=== PATIENT | female | born 1960 | race Caucasian/White ===

== ENCOUNTER 2023-04-20 20:29 | Inpatient (IN) ==
[2023-04-20] MEDS ORDERED: PIPERACILLIN/TAZOBACTAM 4.5 GM/120 ML BAG IV ONE (20:49)
--- NOTE | 2023-04-20 21:21 | Emergency Department Note ---
Impression & Plan Infected blister of sacrum, Cellulitis of left leg without foot, History of diabetes mellitus ED Provider Note Provider: Palomo Wang MD DATE OF SERVICE: 04/20/2023 CHIEF COMPLAINT: Infection HISTORY OF PRESENT ILLNESS: Patient is a 62-year-old female just history of CVA with central and left-sided deficits as well as a history of hypertension and diabetes not insulin presenting with today with concern for worsening infection. Patient has noted on and off for years having occasional cyst of the back particular the low back. Developed over the last several weeks but has recently become red and irritated. Seen at the PCPs office started on Bactrim. Taking Bactrim since Sunday but no change in erythema or drainage from the bottom. Today noted redness and swelling not totally circumferential but of significant mount of the left lower leg. Did recently have her legs shaved. Denies any trauma. Has swelling intermittently dependent more according to the . It swollen now but states this would go down in the morning is not that different than normal. Does wear a foot drop brace. No significant swelling or tenderness of the left leg. Denies any significant pain. No fevers or general fatigue noted. Blood sugars been fairly well controlled. Had concer ns given the new redness of the leg for cellulitis and lack of improvement thus came here for evaluation. PAST MEDICAL HISTORY: As noted above MEDICATIONS: Reviewed home medications includes Bactrim SOCIAL HISTORY: , non-smoker PHYSICAL EXAM: GENERAL: alert and oriented in no acute distress on stretcher, at bedside Head: normocephalic and atraumatic EYES: No injection, discharge or icterus. NECK: Trachea midline. ENT: Mucous membranes pink and moist. LUNGS: Airway patent. No retractions. HEART: Regular rate and rhythm. ABDOMEN: Soft and non-tender, without guarding or rebound. BACK: No midline tenderness, there is a small approximately 2 cm sacral erythematous area with some trace discharge that was cultured SKIN: Acyanotic, warm, dry, without rashes except as noted elsewhere here EXTREMITIES: Without swelling, tenderness or deformity except for the left lower leg which has 2+ edema. There is redness between the left ankle and left knee anterior lateral medial but not fully circumferential. No large draining wound noted. NEUROLOGICAL: Some contracture and limited mobility in the left arm and leg secondary to prior CVA. No aphasia or slurred speech. Intact gross sensation on the bilateral lower legs EK beats. Normal sinus rhythm. No PVC or PAC. No acute ST segment elevation or depression with QTc of 429. Patient's laboratory studies and imaging reviewed. Differential includes Cellulitis, abscess, MRSA infection, DVT, necrotizing fasciitis, dermatitis, drug eruption, allergic reaction, as well as other pathologies. IMPRESSION/MEDICAL DECISION MAKING: Wound culture from a small amount of trace sacral drainage and purulence was sen t. Seems fairly localized. Do not believe deeper extension at this point. Blood cultures lactate and blood work sent. Will expand with [employer] and bank given failure of Bactrim in the outpatient and new expression of redness and edema to the left leg. Seems unilateral and not present on the right leg. Will exclude DVT with ultrasound. Seems atypical for heart failure given the asymmetric nature at this time. Not having any significant pain or neurological new deficit given her underlying history of stroke weakness. No lactate elevation and doubt sepsis. Afebrile here not hypotensive. No significant leukocytosis. No anemia. No severe electrolyte abnormalities. No transaminitis. Negative COVID. Pro-Christopher not significantly elevated. Ultrasound report of the left lower leg reviewed. Given the development of the left lower leg as well as persistence of the sacral area while on antibiotics, again covered broadly and will bring in for further observation for improvement. Blood cultures and wound cultures are pending. Patient and in agreement this plan. DIAGNOSIS: Sacral cellulitis/infection, left leg cellulitis DISPOSITION: Hospitalist will evaluate Patient was agreeable with this plan. Past Med/Surg History Social History Smoking Status: Never smoker Preferred Language: Bangladeshi Feels Safe at Home: Yes Allergies Allergies Allergy/AdvReac Type Severity Reaction Status Date / Time aspirin Allergy Unknown Verified 11/05/09 02:34 Home Meds Home Medications Medication Instructions Recorded Confirmed Lisinopril (Prinivil) 20 mg PO DAILY #0 tabs 09/14/13 ASPIRIN (ASPIRIN EC) 81 mg PO DAILY ##0 10/16/13 Acetaminophen (Tylenol) 650 mg PO Q4 PRN MILD PAIN #0 tabs 10/16/13 Amlodipine (Norvasc) 20 mg PO DAILY #0 tabs 10/16/13 BISACODYL 10 mg VT NO BM X 2 DAYS ##0 10/16/13 DOCUSATE SODIUM (COLACE) 100 mg PO BID #0 caps 10/16/13 FAMOTIDINE (PEPCID) 20 mg PO BID #0 tabs 10/16/13 LACTULOSE (ENCEPHALOPATHY) 30 ml PO DAILY PRN NO BM X 1 DAY 10/16/13 (LACTULOSE) ##0 MAGNESIUM HYDROXIDE (MILK OF 30 ml PO NO BM X 1 DAY #0 mL 10/16/13 MAGNESIA) Metoprolol Tartrate (Lopressor) 12.5 mg PO BID #0 tabs 10/16/13 (Lopressor) Pravastatin (Pravachol ) 40 mg PO DAILY @ 1900 #0 tabs 10/16/13 Senna/Docusate Sod (Senokot S) 1 tab PO BID PRN #0 tabs 10/16/13 Sodium Phosphate/Biphosphate 1 dose VT DAILY PRN NO BM X 3 DAYS 10/16/13 (Fleet Enema) #0 BTLS Results & Data (ED) Vital Signs Vital Signs - 24 hr 04/20/23 20:31 04/20/23 20:30 04/20/23 20:54 Temperature 36.6 C Temperature Source Temporal Artery Scan Pulse Rate 82 80 Pulse Rate [Apical] 76 Pulse Rhythm Regular Pulse Rhythm [Apical] Pulse Strength Normal Pulse Strength [Apical] Respiratory Rate 18 19 Respiratory Effort / Characteristics Non-Labored Spontaneous Non-Labored Respiratory Depth Normal Normal Respiratory Pattern Regular Blood Pressure 141/88 H Blood Pressure [Right Arm] 125/80 Blood Pressure Mean 105 Blood Pressure Mean [Right Arm] 95 Blood Pressure Position Sitting Pulse Oximetry 94 98 Oxygen Delivery Method Room Air Room Air Sepsis Recent Fever Within 48 Hours No Sepsis New/Unexplained Change in Mental Status N/A Sepsis Action Taken by Nursing No Action Required 04/20/23 22:27 Temperature Temperature Source Pulse Rate Pulse Rate [Apical] 75 Pulse Rhythm Pulse Rhythm [Apical] Regular Pulse Strength Pulse Strength [Apical] Normal Respiratory Rate 18 Respiratory Effort / Characteristics Non-Labored Respiratory Depth Normal Respiratory Pattern Blood Pressure Blood Pressure [Right Arm] 124/83 Blood Pressure Mean Blood Pressure Mean [Right Arm] 96 Blood Pressure Position Pulse Oximetry 96 Oxygen Delivery Method Sepsis Recent Fever Within 48 Hours Sepsis New/Unexplained Change in Mental Status Sepsis Action Taken by Nursing Laboratory Data 04/20/23 21:09 04/20/23 21:09 Lab Results 04/20/23 04/20/23 04/20/23 Range/Units 21:09 21:09 21:09 WBC 5.84 (4.8-10.8) K/ul RBC 5.01 (4.20-5.40) M/uL Hgb 14.6 (12.0-16.0) g/dl Hct 41.3 (37.0-47.0) % MCV 82.4 (80.0-100.0) fL MCH 29.1 (25.0-34.0) pg MCHC 35.4 (32.0-36.0) g/dL RDW Std Deviation 39.8 (36.4-46.3) fL RDW Coeff of Janeth 13.5 (11.5-14.5) % Plt Count 251 (130-400) K/uL MPV 9.6 (9.4-12.4) fL Immature Gran % (Auto) 0.3 % Neut % (Auto) 61.5 % Lymph % (Auto) 17.8 % [place] % (Auto) 15.6 % Eos % (Auto) 4.1 % Baso % (Auto) 0.7 % Neut # (Auto) 3.59 (1.40-6.50) K/uL Lymph # (Auto) 1.04 L (1.2-3.4) K/uL [place] # (Auto) 0.91 H (0.11-0.59) K/uL Eos # (Auto) 0.24 (0-0.50) K/uL Baso # (Auto) 0.04 (0-0.2) K/uL Immature Gran # (Auto) 0.02 (0.01-0.20) K/uL PT 11.0 (9.0-12.0) Seconds INR 1.0 (0.9-1.1) Sodium 136 (136-145) mmol/L Potassium 4.0 (3.5-5.1) mmol/L Chloride 104 (98-107) mmol/L Carbon Dioxide 23 (21-32) mmol/L Anion Gap 9 (3-11) BUN 21 (6-23) mg/dl Creatinine 1.21 H (0.6-1.2) mg/dl Est Cr Clr Drug Dosing 54.9 ml/min Est GFR ( Amer) 55.5 ml/min Est GFR (Non-Af Amer) 47.9 ml/min BUN/Creatinine Ratio 17.4 (10-20) Glucose 132 H (70-99(Fasting)) mg/dl Lactate (0.4-2.0) mmol/L Calcium 9.1 (8.6-10.3) mg/dl Total Bilirubin 0.3 (0.2-1.0) mg/dl AST 34 (13-39) U/L ALT 45 (7-52) U/L Alkaline Phosphatase 76 (34-104) U/L Troponin I High Sens 3.3 (0-14) pg/ml Total Protein 6.9 (6.0-8.3) gm/dl Albumin 4.1 (3.4-5.0) gm/dl Globulin 2.8 (2.5-4.0) gm/dl Albumin/Globulin Ratio 1.5 (0.9-2) Procalcitonin (0-0.5) ng/ml SARS-CoV-2, RNA, NAAT (NEGATIVE) 04/20/23 04/20/23 04/20/23 Range/Units 21:09 21:09 21:09 WBC (4.8-10.8) K/ul RBC (4.20-5.40) M/uL Hgb (12.0-16.0) g/dl Hct (37.0-47.0) % MCV (80.0-100.0) fL MCH (25.0-34.0) pg MCHC (32.0-36.0) g/dL RDW Std Deviation (36.4-46.3) fL RDW Coeff of Janeth (11.5-14.5) % Plt Count (130-400) K/uL MPV (9.4-12.4) fL Immature Gran % (Auto) % Neut % (Auto) % Lymph % (Auto) % [place] % (Auto) % Eos % (Auto) % Baso % (Auto) % Neut # (Auto) (1.40-6.50) K/uL Lymph # (Auto) (1.2-3.4) K/uL [place] # (Auto) (0.11-0.59) K/uL Eos # (Auto) (0-0.50) K/uL Baso # (Auto) (0-0.2) K/uL Immature Gran # (Auto) (0.01-0.20) K/uL PT (9.0-12.0) Seconds INR (0.9-1.1) Sodium (136-145) mmol/L Potassium (3.5-5.1) mmol/L Chloride (98-107) mmol/L Carbon Dioxide (21-32) mmol/L Anion Gap (3-11) BUN (6-23) mg/dl Creatinine (0.6-1.2) mg/dl Est Cr Clr Drug Dosing ml/min Est GFR ( Amer) ml/min Est GFR (Non-Af Amer) ml/min BUN/Creatinine Ratio (10-20) Glucose (70-99(Fasting)) mg/dl Lactate 2.0 (0.4-2.0) mmol/L Calcium (8.6-10.3) mg/dl Total Bilirubin (0.2-1.0) mg/dl AST (13-39) U/L ALT (7-52) U/L Alkaline Phosphatase (34-104) U/L Troponin I High Sens (0-14) pg/ml Total Protein (6.0-8.3) gm/dl Albumin (3.4-5.0) gm/dl Globulin (2.5-4.0) gm/dl Albumin/Globulin Ratio (0.9-2) Procalcitonin < 0.05 (0-0.5) ng/ml SARS-CoV-2, RNA, NAAT NEGATIVE (NEGATIVE) Administered Medications Vancomycin HCl 2,000 mg/ (Sodium Chloride) 540 mls @ 200 mls/hr IV NOW ONE Stop: 04/21/23 00:15 Last Admin: 04/20/23 22:24 Dose: 200 mls/hr Documented By: BENJAMIN Discontinued Medications Piperacillin Sod/Tazobactam Sod (Zosyn) 4.5 gm in 120 mls @ 240 mls/hr IV NOW ONE Stop: 04/20/23 21:18 Last Infusion: 04/20/23 22:16 Dose: 0 mls/hr Documented By: Admin: 04/20/23 21:21 Dose: 240 mls/hr Documented By: BENJAMIN Discharge Plan Visit Data Chief Complaint: Infection Stated Complaint: CYST ON MIDDLE OF BACK, INFECTION ON LEFT LEG ED Provider: Palomo Wang Discharge Problem: Infected blister of sacrum, Cellulitis of left leg without foot, History of diabetes mellitus Patient Disposition: Being Evaluated by Hospitalist Forms Stand Alone Forms: My [facility] Prescriptions Prescriptions: No Action Lisinopril (Prinivil) 20 MG tablet 20 mg PO DAILY Qty: 0 ASPIRIN (ASPIRIN EC) 81 MG tablet 81 mg PO DAILY Qty: 0 Amlodipine (Norvasc) 10 MG tablet 20 mg PO DAILY Qty: 0 DOCUSATE SODIUM (COLACE) 100 MG capsule 100 mg PO BID Qty: 0 FAMOTIDINE (PEPCID) 20 MG tablet 20 mg PO BID Qty: 0 Acetaminophen (Tylenol) 325 MG tablet 650 mg PO Q4 PRN (Reason: MILD PAIN) Qty: 0 Patient Comments: MAX 3GM/24 HOURS BISACODYL 10 MG SUP 10 mg VT NO BM X 2 DAYS Qty: 0 LACTULOSE (ENCEPHALOPATHY) (LACTULOSE) 10 GM/15 ML SOLTAB 30 ml PO DAILY PRN (Reason: NO BM X 1 DAY) Qty: 0 MAGNESIUM HYDROXIDE (MILK OF MAGNESIA) 30 ML suspension 30 ml PO NO BM X 1 DAY Qty: 0 Metoprolol Tartrate (Lopressor) (Lopressor) 25 MG tablet 12.5 mg PO BID Qty: 0 Patient Comments: TAKE HALF OF A 25MG TABLET (12.5MG) Pravastatin (Pravachol ) 20 MG tablet 40 mg PO DAILY @ 1900 Qty: 0 Senna/Docusate Sod (Senokot S) 1 TAB tablet 1 tab PO BID PRNQty: 0 Sodium Phosphate/Biphosphate (Fleet Enema) MAXIMILIANO 1 dose VT DAILY PRN (Reason: NO BM X 3 DAYS) Qty: 0 Referrals Referrals: PCP,NO [Physician] -
[2023-04-20] MEDS ORDERED: VANCOMYCIN HCL 2,000 MG in SODIUM CHLORIDE 0.9% 500 ML IV ONE (21:34)
[2023-04-20] MEDS ORDERED: VANCOMYCIN CONSULT ACTIVE PRN (21:34)
[2023-04-20 21:46] LABS: Basophils # (auto) 0.04 K/uL (0-0.2); Basophils % (auto) 0.7 %; Eosinophils # (auto) 0.24 K/uL (0-0.50); Eosinophils % (auto) 4.1 %; Hematocrit (blood only) 41.3 % (37.0-47.0); Hemoglobin 14.6 g/dl (12.0-16.0); Immature Granulocytes # (auto) 0.02 K/uL (0.01-0.20); Immature Granulocytes % (auto) 0.3 %; Lymphocytes # (auto) 1.04 K/uL (1.2-3.4); Lymphocytes % (auto) 17.8 %; Mean Corpuscular Hemoglobin 29.1 pg (25.0-34.0); Mean Corpuscular Hgb Conc 35.4 g/dL (32.0-36.0); Mean Corpuscular Volume 82.4 fL (80.0-100.0); Mean Platelet Volume 9.6 fL (9.4-12.4); Monocytes # (auto) 0.91 K/uL (0.11-0.59); Monocytes % (auto) 15.6 %; Neutrophils # (auto) 3.59 K/uL (1.40-6.50); Neutrophils % (auto) 61.5 %; Platelet Count 251 K/uL (130-400); RDW Coefficient of Variation 13.5 % (11.5-14.5); RDW Standard Deviation 39.8 fL (36.4-46.3); Red Blood Count 5.01 M/uL (4.20-5.40); White Blood Count 5.84 K/ul (4.8-10.8)
[2023-04-20 21:50] LABS: Albumin Globulin Ratio 1.5 (0.9-2); Albumin Level 4.1 gm/dl (3.4-5.0); BUN Creatinine Ratio 17.4 (10-20); Bilirubin,Total 0.3 mg/dl (0.2-1.0); Calcium 9.1 mg/dl (8.6-10.3); Creatinine Clr Calc Pharmacy 54.9 ml/min; Est GFR (African American) 55.5 ml/min; Est GFR (Non-African American) 47.9 ml/min; Globulin 2.8 gm/dl (2.5-4.0); Total Protein 6.9 gm/dl (6.0-8.3)
[2023-04-20 21:57] LABS: Troponin I High Sensitivity 3.3 pg/ml (0-14)
--- NOTE | 2023-04-20 23:54 | Ultrasound Report ---
Exam(s): US VENOUS LEFT LOWER EXTREMITY EXAM: US Duplex Left Lower Extremity Veins CLINICAL HISTORY: Reason for exam: swelling, red. TECHNIQUE: Real-time duplex ultrasound scan of the left lower extremity veins integrating B-mode two-dimensional vascular structure, Doppler spectral analysis, color flow Doppler imaging and compression. COMPARISON: No relevant prior studies available. FINDINGS: Deep veins: Unremarkable. No DVT in the visualized common femoral, femoral, proximal deep femoral or popliteal veins. The veins demonstrate normal color flow, are normally compressible, with normal phasic flow and/or augmentation response. Superficial veins: Unremarkable. No thrombus in the visualized great saphenous vein. Soft tissues: No acute findings. No popliteal cyst. IMPRESSION: Negative left lower extremity venous duplex ultrasound. There is no evidence of DVT. Electronically signed by: Palomo Juan MD 04/20/23 23:53 PM
--- NOTE | 2023-04-20 23:58 | History & Physical Report ---
Date of Service April 20, 2023 Assessment & Plan (1) Infected blister of sacrum: Plan: 62-year-old female presents with small cutaneous abscess on the mid lower back above buttock region and also cellulitis of the left lower extremities. Failed outpatient treatment with Bactrim. Small cutaneous abscess in the lower back Left lower extremity cellulitis Failed outpatient treatment with Bactrim ER started IV Vanco and Zosyn which will be continued We will follow cultures We will follow the response Will monitor in the hospital History of CVA Left-sided weakness Continue statin and aspirin Diabetes Hold metformin Insulin sliding scale Monitor the blood sugars Follow HbA1c levels Hypertension Continue amlodipine and lisinopril We will monitor the blood pressure Hyperlipidemia On statin Sleep apnea CPAP nightly DVT prophylaxis Lovenox Disposition to be determined Full code (2) Cellulitis of left leg without foot: History of Present Illness Chief Complaint: Cutaneous abscess in the back and left lower extremity cellulitis Primary Care Provider: Stefany Ty, 62-year-old female with past medical history significant for type 2 diabetes, hyperlipidemia, hypertension, thrombotic stroke involving the right middle cerebral artery, history of carotid artery dissection, history of craniotomy at the time of stroke, left side hemiparesis from the stroke, history of Alex's syndrome, cranial 3 palsy partial, obesity presents with small cutaneous abscess in the lower back and left lower extremity cellulitis. Patient will insist on of since last 1 year in the lower back but seems infected recently. Saw PCP recently on April 17 for the small cutaneous abscess in the back which was painful and was draining purulent discharge and was prescribed Bactrim. The next day she developed redness in the lower extremity. She uses brace for the left lower extremity for ambulation because of weakness of stroke and the redness is in the area where the brace is placed. As it was not getting better came to the ER today. Denies any fevers. In the ER small cutaneous abscess in the lower back was drained and cultures were sent and he was started on IV Vanco and Zosyn. Currently resting comfortably and hemodynamically stable. No headache. No earache runny nose or sore throat. No cough. Appetite is okay. No difficulty swallowing. No chest pain or shortness of breath. No nausea or vomiting. No abdominal pain. Normal bowel and bladder movements. Ambulates with a brace on. helps her. in the room who helped with H&P Past medical history as mentioned above Past surgical history colonoscopy, cystoscopy, craniotomy, removal of ovaries, repair of skull plate. Social history no smoking 1 glass of wine a night no drug use . Family history mother has asthma and hypertension. Father has diabetes. Brother has diabetes. Cousin has breast cancer.. Allergies Allergy/AdvReac Type Severity Reaction Status Date / Time aspirin Allergy Unknown Verified 11/05/09 02:34 Home Medications Medication Instructions Recorded Confirmed Type amlodipine 10 mg tablet 10 mg PO DAILY 04/20/23 04/20/23 History aspirin 81 mg tablet,delayed 81 mg PO DAILY 04/20/23 04/20/23 History release atorvastatin 40 mg tablet 40 mg PO DAILY 04/20/23 04/20/23 History lisinopril 20 mg tablet 20 mg PO DAILY 04/20/23 04/20/23 History metformin 1,000 mg tablet 1,000 mg PO BID 04/20/23 04/20/23 History sulfamethoxazole 800 1 tab PO BID 04/20/23 04/20/23 History mg-trimethoprim 160 mg tablet Past Med/Surg History Social History Smoking Status: Never smoker Preferred Language: Guatemalan Feels Safe at Home: Yes Review of Systems Review of Systems: All systems reviewed & are unremarkable except as noted in Subjective Physical Exam Physical Exam: General- Not in distress Head- atraumatic Eyes- PERRL ENT- oropharynx clear Neck- supple, no JVD. Lungs- clear to auscultation and percussion Heart- regular rhythm; no murmur, no gallop, no rub appreciated Abdomen- normal bowel sounds, soft, nontender, no masses or hepatosplenomegaly Extremities- Left lower extremity erythematous and warm to touch until mid akers region from foot. Neuro- alert, oriented x 3; Left sided weakness. Skin- maculopapular lesion 2 x 2 cm on middle of lower back region above buttock region. Results & Data Results & Data Vital Signs (Past 12 Hours) Vital Signs Temp Pulse Pulse Resp BP BP Pulse Ox 04/20/23 22:27 75 18 124/83 96 04/20/23 20:54 80 04/20/23 20:30 76 19 125/80 98 04/20/23 20:31 36.6 C 82 18 141/88 H 94 O2 Del Method 04/20/23 22:27 07/21/23 20:54 04/20/23 20:30 Room Air 04/20/23 20:31 Room Air Diagnostic Findings Laboratory Results WBC 5.84 K/ul (4.8-10.8) 04/20/23 21:09 RBC 5.01 M/uL (4.20-5.40) 04/20/23 21:09 Hgb 14.6 g/dl (12.0-16.0) 04/20/23 21:09 Hct 41.3 % (37.0-47.0) 04/20/23 21: MCV 82.4 fL (80.0-100.0) 04/20/23 21: MCH 29.1 pg (25.0-34.0) 04/20/23 21: MCHC 35.4 g/dL (32.0-36.0) 04/20/23 21:09 RDW Std Deviation 39.8 fL (36.4-46.3) 04/20/23 21:09 RDW Coeff of Janeth 13.5 % (11.5-14.5) 04/20/23 21: Plt Count 251 K/uL (130-400) 04/20/23 21:09 MPV 9.6 fL (9.4-12.4) 04/20/23 21:09 Immature Gran % (Auto) 0.3 % 04/20/23 21:09 Neut % (Auto) 61.5 % 04/20/23 21:09 Lymph % (Auto) 17.8 % 04/20/23 21:09 [place] % (Auto) 15.6 % 04/20/23 21:09 Eos % (Auto) 4.1 % 04/20/23 21:09 Baso % (Auto) 0.7 % 04/20/23 21:09 Neut # (Auto) 3.59 K/uL (1.40-6.50) 04/20/23 21:09 Lymph # (Auto) 1.04 K/uL (1.2-3.4) L 04/20/23 21:09 [place] # (Auto) 0.91 K/uL (0.11-0.59) H 04/20/23 21:09 Eos # (Auto) 0.24 K/uL (0-0.50) 04/20/23 21:09 Baso # (Auto) 0.04 K/uL (0-0.2) 04/20/23 21:09 Immature Gran # (Auto) 0.02 K/uL (0.01-0.20) 04/20/23 21:09 PT 11.0 Seconds (9.0-12.0) 04/20/23 21:09 INR 1.0 (0.9-1.1) 04/20/23 21:09 Sodium 136 mmol/L (136-145) 04/20/23 21:09 Potassium 4.0 mmol/L (3.5-5.1) 04/20/23 21: Chloride 104 mmol/L (98-107) 04/20/23 21: Carbon Dioxide 23 mmol/L (21-32) 04/20/23 21: Anion Gap 9 (3-11) 04/20/23 21:09 BUN 21 mg/dl (6-23) 04/20/23 21: Creatinine 1.21 mg/dl (0.6-1.2) H 04/20/23 21:09 Est Cr Clr Drug Dosing 54.9 ml/min 04/20/23 21:09 Est GFR ( Amer) 55.5 ml/min 04/20/23 21:09 Est GFR (Non-Af Amer) 47.9 ml/min 04/20/23 21:09 BUN/Creatinine Ratio 17.4 (10-20) 04/20/23 21:09 Glucose 132 mg/dl (70-99(Fasting)) H 04/20/23 21:09 Lactate 2.0 mmol/L (0.4-2.0) 04/20/23 21:09 Calcium 9.1 mg/dl (8.6-10.3) 04/20/23 21:09 Total Bilirubin 0.3 mg/dl (0.2-1.0) 04/20/23 21:09 AST 34 U/L (13-39) 04/20/23 21:09 ALT 45 U/L (7-52) 04/20/23 21:09 Alkaline Phosphatase 76 U/L (34-104) 04/20/23 21:09 Troponin I High Sens 3.3 pg/ml (0-14) 04/20/23 21:09 Total Protein 6.9 gm/dl (6.0-8.3) 04/20/23 21:09 Albumin 4.1 gm/dl (3.4-5.0) 04/20/23 21:09 Globulin 2.8 gm/dl (2.5-4.0) 04/20/23 21:09 Albumin/Globulin Ratio 1.5 (0.9-2) 04/20/23 21:09 Procalcitonin < 0.05 ng/ml (0-0.5) 04/20/23 21:09 SARS-CoV-2, RNA, NAAT NEGATIVE (NEGATIVE) 04/20/23 21:09 Impressions Venous Doppler Study 04/20/23 20:48 Exam(s): US VENOUS LEFT LOWER EXTREMITY EXAM: US Duplex Left Lower Extremity Veins CLINICAL HISTORY: Reason for exam: swelling, red. TECHNIQUE: Real-time duplex ultrasound scan of the left lower extremity veins integrating B-mode two-dimensional vascular structure, Doppler spectral analysis, color flow Doppler imaging and compression. COMPARISON: No relevant prior studies available. FINDINGS: Deep veins: Unremarkable. No DVT in the visualized common femoral, femoral, proximal deep femoral or popliteal veins. The veins demonstrate normal color flow, are normally compressible, with normal phasic flow and/or augmentation response. Superficial veins: Unremarkable. No thrombus in the visualized great saphenous vein. Soft tissues: No acute findings. No popliteal cyst. IMPRESSION: Negative left lower extremity venous duplex ultrasound. There is no evidence of DVT. Electronically signed by: Palomo Juan MD 04/20/23 23:53 PM ECG Additional Comments: ECG normal sinus rhythm at the rate of [address] abnormalities Code Status & VTE Plan VTE Prophylaxis Plan VTE Prophylaxis will be ordered: Yes
[2023-04-21] MEDS ORDERED: CARBOHYDRATES FOR HYPOGLYCEMIA PO PRN (02:07)
[2023-04-21] MEDS ORDERED: GLUCAGON FOR INJ 1 MG VIAL SQ PRN (02:07)
[2023-04-21] MEDS ORDERED: ACETAMINOPHEN 325 MG TAB PO PRN (02:07)
[2023-04-21] MEDS ORDERED: DEXTROSE 50% 50 ML SYRINGE IV PRN (02:07)
[2023-04-21] MEDS ORDERED: SODIUM CHLORIDE 0.9% 1000ML 1,000 ML IV SCH (02:07)
[2023-04-21] MEDS ORDERED: POLYETHYLENE (MIRALAX) 17 GM PACK PO PRN (02:07)
[2023-04-21] MEDS ORDERED: GLUCOSE 10 TAB/TUBE PO PRN (02:07)
[2023-04-21] MEDS ORDERED: GLUCOSE 40% GEL 15 GM TUBE PO PRN (02:07)
[2023-04-21] MEDS: PIPERACILLIN/TAZOBACTAM 4.5 GM in DEXTROSE 5% 100 ML IV SCH ×3 (03:39→21:08)
[2023-04-21 07:24] LABS: Basophils # (auto) 0.04 K/uL (0-0.2); Basophils % (auto) 0.9 %; Eosinophils # (auto) 0.27 K/uL (0-0.50); Eosinophils % (auto) 5.8 %; Hematocrit (blood only) 38.8 % (37.0-47.0); Immature Granulocytes # (auto) 0.02 K/uL (0.01-0.20); Immature Granulocytes % (auto) 0.4 %; Lymphocytes # (auto) 0.95 K/uL (1.2-3.4); Lymphocytes % (auto) 20.4 %; Mean Corpuscular Hgb Conc 33.5 g/dL (32.0-36.0); Mean Corpuscular Volume 83.4 fL (80.0-100.0); Mean Platelet Volume 9.7 fL (9.4-12.4); Monocytes # (auto) 0.83 K/uL (0.11-0.59); Monocytes % (auto) 17.8 %; Neutrophils # (auto) 2.55 K/uL (1.40-6.50); Neutrophils % (auto) 54.7 %; Platelet Count 222 K/uL (130-400); RDW Coefficient of Variation 13.5 % (11.5-14.5); RDW Standard Deviation 41.1 fL (36.4-46.3); Red Blood Count 4.65 M/uL (4.20-5.40); White Blood Count 4.66 K/ul (4.8-10.8)
[2023-04-21 08:40] LABS: Calcium 8.5 mg/dl (8.6-10.3); Potassium 4.3 mmol/L (3.5-5.1)
[2023-04-21 08:45] LABS: BUN Creatinine Ratio 15.9 (10-20); Creatinine Clr Calc Pharmacy 58.8 ml/min; Est GFR (African American) 60.3 ml/min
--- NOTE | 2023-04-21 09:11 | Electrocardiogram Report ---
Test Reason : Blood Pressure : / mmHG Vent. Rate : 070 BPM Atrial Rate : 070 BPM P-R Int : 132 ms QRS Dur : 096 ms QT Int : 398 ms P-R-T Axes : 036 -03 033 degrees QTc Int : 429 ms Normal sinus rhythm Normal ECG When compared with ECG of 16-OCT-2013 11:13, Premature ventricular complexes are no longer Present Confirmed by Tristan Marcelo ([id number]) on 04/21/2023 9:10:55 AM Referred By: REFERRED SELF Confirmed By:Tristan Marcelo
[2023-04-21 09:13] LABS: Estimated Average Glucose 140 mg/dl; Hemoglobin A1C 6.5 % (4.5-5.6)
[2023-04-21] MEDS: INSULIN ASPART PER UNIT CHARGE SC SCH ×4 (09:14→21:08)
[2023-04-21] MEDS: ENOXAPARIN INJ 40 MG/0.4 ML SYR SQ SCH (09:15)
[2023-04-21] MEDS: lisinopril 20 MG TAB PO SCH (09:15)
[2023-04-21] MEDS: amLODIPine BESYLATE 5 MG TAB PO SCH (09:15)
[2023-04-21] MEDS: ASPIRIN 81 MG ECTAB PO SCH (09:15)
[2023-04-21] MEDS: ATORVASTATIN 40 MG TAB PO SCH (09:15)
--- NOTE | 2023-04-21 10:36 | Pharmacy Report ---
Pharmacy PK ABX Note - Date of Service April 21, 2023 - Assessment and Plan Assessment 62 year old F receiving Vancomycin and Zosyn for treatment of small cutaneous abscess in the lower back and left lower extremity cellulitis. * Day #1 of antimicrobial therapy. * Failed outpatient treatment with Bactrim. * Afebrile. No leukocytosis. Lactate and Procal negative. SCr 1.13 mg/dL this AM, baseline 0.8 mg/dL. * Outpatient wound culture from 04/17/23 is growing "few staph lugdunensis" preliminarily. Our antibiogram shows ~94% of Staph lugdunensis are susceptible to Oxacillin at this facility. Plan Vancomycin * Loading dose: 2000 mg IV x 1 * Maintenance dose: 750 mg IV every 12 hours * Regimen is predicted to achieve target AUC/ANANDA of 400-600 mg/L.hr * Random level ordered for: 04/22/23 Pharmacy will continue to follow and will adjust dose/frequency as necessary. Thank you. Pharmacy has transitioned to AUC monitoring for vancomycin. AUC/ANANDA is the preferred PK/PD target and is associated with decreased risk of nephrotoxicity compared to traditional trough targets.
[2023-04-21] MEDS: VANCOMYCIN HCL 750 MG in SODIUM CHLORIDE 0.9% 250 ML IV SCH ×2 (12:43→23:13)
--- NOTE | 2023-04-21 15:43 | Hospitalist Progress Note ---
Date of Service April 21, 2023 Assessment & Plan (1) Infected blister of sacrum: Plan: 62-year-old female presents with small cutaneous abscess on the mid lower back above buttock region and also cellulitis of the left lower extremities. Failed outpatient treatment with Bactrim. Small cutaneous abscess in the lower back We will follow cultures-pinpoint growth No drainage and/or abscess We will continue current antibiotic for now Blood cultures have been pending Left lower extremity cellulitis Failed outpatient treatment with Bactrim ER started IV Vanco and Zosyn which will be continued We will continue current antibiotic Get PT and OT evaluation Likely discharge tomorrow on oral Augmentin History of CVA Left-sided weakness Continue statin and aspirin Diabetes Hold metformin Insulin sliding scale Monitor the blood sugars Follow HbA1c levels-6.5 on 04/21/2023 Hypertension Continue amlodipine and lisinopril We will monitor the blood pressure Hyperlipidemia On statin Sleep apnea CPAP nightly DVT prophylaxis Lovenox Disposition to be determined Full code (2) Cellulitis of left leg without foot: Admission and Anticipated Discharge Date Admission Date: April 20, 2023 Subjective 04/21/2023 The patient was seen and examined in medical floor in presence of the She has been feeling much better and the redness and swelling of the left leg has improved a lot Sectoral blister is not draining anything without any surrounding inflammation Denies any other symptoms and wants to go home Review of Systems Review of Systems: All systems reviewed and are unremarkable except as noted below Physical Exam Physical Exam: Lying in bed comfortably Constitutional: well developed, well nourished and + obese; not ill appearing Eyes: PERRL, conjunctivae normal, anicteric sclerae ENMT: external ear and nose normal, oropharynx normal Neck: trachea midline, no thyromegaly Respiratory: no respiratory distress Auscultation: + diminished lung sound s; no crackles Cardiovascular: Rate/Rhythm: regular rate and regular rhythm; not tachycardic Heart Sounds: normal S1 and normal S2; no murmur Extremities: + edema (Trace edema bilaterally) Left leg has minimal edema with redness involving whole of the left lower leg with associated warmth and tenderness Gastrointestinal (Abdomen): Inspection/Auscultation: normal bowel sounds; abdomen not distended Percussion/Palpation: abdomen soft; abdomen nontender Musculoskeletal: No acute arthritis involving any of the joint Neurologic: Alert, awake and oriented x3. Generally weak but no focal neurodeficit Lymphatic: no cervical or axillary lymphadenopathy Results & Data Results & Data Vital Signs (Past 12 Hours) Vital Signs Temp Pulse Resp BP Pulse Ox O2 Del Method 04/21/23 07:20 Room Air 04/21/23 07:09 37.0 C 63 17 109/73 94 Room Air Laboratory Results Short CBC 04/20/23 04/21/23 Range/Units 21:09 06:33 WBC 5.84 4.66 L (4.8-10.8) K/ul Hgb 14.6 13.0 (12.0-16.0) g/dl Hct 41.3 38.8 (37.0-47.0) % Plt Count 251 222 (130-400) K/uL BMP 04/20/23 04/21/23 21:09 06:33 Sodium 136 139 Potassium 4.0 4.3 Chloride 104 109 H Carbon Dioxide 23 23 BUN 21 18 Creatinine 1.21 H 1.13 Glucose 132 H 133 H Calcium 9.1 8.5 L Liver Function 04/20/23 Range/Units 21:09 Total Bilirubin 0.3 (0.2-1.0) mg/dl AST 34 (13-39) U/L ALT 45 (7-52) U/L Alkaline Phosphatase 76 (34-104) U/L Albumin 4.1 (3.4-5.0) gm/dl Medications Administered Current Inpatient Medications Acetaminophen (Acetaminophen 325 Mg Tab) 650 mg PO Q4H PRN PRN Reason: pain/fever Stop: 05/21/23 02:06 Amlodipine Besylate (Amlodipine Besylate 5 Mg Tab) 10 mg PO DAILY DIAZ Stop: 05/21/23 08:59 Last Admin: 04/21/23 09:15 Dose: 10 mg Aspirin (Aspirin 81 Mg Ectab) 81 mg PO DAILY DIAZ Stop: 05/21/23 08:59 Last Admin: 04/21/23 09:15 Dose: 81 mg Atorvastatin Calcium (Atorvastatin 40 Mg Tab) 40 mg PO DAILY DIAZ Stop: 05/21/23 08:59 Last Admin: 04/21/23 09:15 Dose: 40 mg Dextrose (Dextrose 50% 50 Ml Syringe) 25 - 50 ml IV UD PRN; Protocol PRN Reason: Hypoglycemia Protocol Stop: 05/21/23 02:06 Enoxaparin Sodium (Enoxaparin Inj 40 Mg/0.4 Ml Syr) 40 mg SQ Q24H DIAZ Stop: 05/21/23 07:59 Last Admin: 04/21/23 09:15 Dose: 40 mg Glucagon (Glucagon For Inj 1 Mg Vial) 1 mg SQ UD PRN; Protocol PRN Reason: Hypoglycemia Protocol Stop: 05/21/23 02:06 Glucose (Glucose 10 Tab/Tube) 4 - 8 tab PO UD PRN; Protocol PRN Reason: Hypoglycemia Treatment Stop: 05/21/23 02:06 Glucose (Glucose 40% Gel 15 Gm Tube) 15 - 30 gm PO UD PRN; Protocol PRN Reason: Hypoglycemia Protocol Stop: 05/21/23 02:06 Piperacillin Sod/Tazobactam (Sod 4.5 gm/ Dextrose) 120 mls @ 30 mls/hr IV Q8H DIAZ; Protocol Stop: 04/28/23 03:59 Last Admin: 04/21/23 11:43 Dose: 30 mls/hr Vancomycin HCl 750 mg/ Sodium (Chloride) 265 mls @ 200 mls/hr IV Q12H DIAZ Stop: 04/28/23 10:59 Last Infusion: 04/21/23 14:03 Dose: Infused Insulin Aspart (Insulin Aspart Per Unit Charge) 0 units SC ACHS DIAZ Stop: 05/21/23 07:29 Last Admin: 04/21/23 13:14 Dose: 4 units Lisinopril (Lisinopril 20 Mg Tab) 20 mg PO DAILY DIAZ Stop: 05/21/23 08:59 Last Admin: 04/21/23 09:15 Dose: 20 mg Miscellaneous (Carbohydrates For Hypoglycemia ) 15 - 30 gm PO UD PRN PRN Reason: Hypoglycemia Protocol Stop: 05/21/23 02:06 Miscellaneous Information (Vancomycin Consult Active) 1 each N/A UD PRN PRN Reason: Consult Stop: 05/20/23 21:33 Polyethylene Glycol (Polyethylene (Miralax) 17 Gm Pack) 17 gm PO DAILY PRN PRN Reason: Constipation Stop: 05/21/23 02:06
[2023-04-22] MEDS: PIPERACILLIN/TAZOBACTAM 4.5 GM in DEXTROSE 5% 100 ML IV SCH (04:20)
[2023-04-22 04:50] LABS: Basophils # (auto) 0.03 K/uL (0-0.2); Basophils % (auto) 0.8 %; Eosinophils # (auto) 0.29 K/uL (0-0.50); Eosinophils % (auto) 7.3 %; Hematocrit (blood only) 42.2 % (37.0-47.0); Hemoglobin 14.3 g/dl (12.0-16.0); Immature Granulocytes # (auto) 0.01 K/uL (0.01-0.20); Immature Granulocytes % (auto) 0.3 %; Lymphocytes # (auto) 1.15 K/uL (1.2-3.4); Lymphocytes % (auto) 28.8 %; Mean Corpuscular Hemoglobin 28.7 pg (25.0-34.0); Mean Corpuscular Hgb Conc 33.9 g/dL (32.0-36.0); Mean Corpuscular Volume 84.7 fL (80.0-100.0); Mean Platelet Volume 9.7 fL (9.4-12.4); Monocytes # (auto) 0.56 K/uL (0.11-0.59); Neutrophils # (auto) 1.96 K/uL (1.40-6.50); Neutrophils % (auto) 48.8 %; Platelet Count 222 K/uL (130-400); RDW Coefficient of Variation 13.7 % (11.5-14.5); RDW Standard Deviation 42.3 fL (36.4-46.3); Red Blood Count 4.98 M/uL (4.20-5.40)
[2023-04-22 05:07] LABS: BUN Creatinine Ratio 15.2 (10-20); Calcium 8.8 mg/dl (8.6-10.3); Creatinine Clr Calc Pharmacy 59.4 ml/min; Est GFR (Non-African American) 52.6 ml/min; Potassium 4.4 mmol/L (3.5-5.1)
[2023-04-22] MEDS: amLODIPine BESYLATE 5 MG TAB PO SCH (08:13)
[2023-04-22] MEDS: ENOXAPARIN INJ 40 MG/0.4 ML SYR SQ SCH (08:13)
[2023-04-22] MEDS: ATORVASTATIN 40 MG TAB PO SCH (08:14)
[2023-04-22] MEDS: lisinopril 20 MG TAB PO SCH (08:14)
[2023-04-22] MEDS: ASPIRIN 81 MG ECTAB PO SCH (08:14)
[2023-04-22] MEDS: INSULIN ASPART PER UNIT CHARGE SC SCH ×2 (08:52→12:34)
--- NOTE | 2023-04-22 09:30 | Pharmacy Report ---
Pharmacy PK ABX Note - Date of Service April 22, 2023 - Assessment and Plan Assessment 62 year old F receiving Vancomycin and Zosyn for treatment of small cutaneous abscess in the lower back and left lower extremity cellulitis. * Day #2 of antimicrobial therapy. * Failed outpatient treatment with Bactrim. * Afebrile. No leukocytosis. Lactate and Procal negative. SCr 1.12 mg/dL this AM, baseline 0.8-0.9 mg/dL. * Outpatient wound culture from 04/17/23 is now final and grew "few Stap hylococcus lugdunensis" that is oxacillin sensitive (see below). Will attempt antimicrobial de-escalation today after discussion with the provider. Plan Vancomycin * Current regimen: 750 mg IV every 12 hours * Random level obtained 04/22/23 resulted as 13.5 mcg/mL. This is predicted to achieve target AUC/ANANDA of 400-600 mg/L.hr * Predicted AUC at steady state: 427 mg/L.hr * Continue 750 mg IV every 12 hours * Repeat random level ordered for: 04/24/23 Pharmacy will continue to follow and will adjust dose/frequency as necessary. Thank you. Pharmacy has transitioned to AUC monitoring for vancomycin. AUC/ANANDA is the preferred PK/PD target and is associated with decreased risk of nephrotoxicity compared to traditional trough targets.
[2023-04-22] MEDS ORDERED: ceFAZolin 2000MG 2,000 MG/15 ML SYR IV SCH (10:00)
--- NOTE | 2023-04-22 13:52 | Hospitalist Progress Note ---
Date of Service April 22, 2023 Assessment & Plan (1) Infected blister of sacrum: Plan: 62-year-old female presents with small cutaneous abscess on the mid lower back above buttock region and also cellulitis of the left lower extremities. Failed outpatient treatment with Bactrim. Small cutaneous abscess in the lower back We will follow cultures-pinpoint growth Staphylococcus species likely skin shane No drainage and/or abscess We will continue current antibiotic for now Blood cultures negative Left lower extremity cellulitis Failed outpatient treatment with Bactrim ER started IV Vanco and Zosyn which will be continued We will continue current antibiotic Get PT and OT evaluation Likely discharge tomorrow on oral Augmentin The cellulitis has improved a lot and the patient was discharged home on oral Augmentin History of CVA Left-sided weakness Continue statin and aspirin Diabetes Hold metformin Insulin sliding scale Monitor the blood sugars Follow HbA1c levels-6.5 on 04/21/2023 Hypertension Continue amlodipine and lisinopril We will monitor the blood pressure Hyperlipidemia On statin Sleep apnea CPAP nightly DVT prophylaxis Lovenox Disposition to be determined Full code (2) Cellulitis of left leg without foot: Admission and Anticipated Discharge Date Admission Date: April 20, 2023 Subjective 04/21/2023 The patient was seen and examined in medical floor in presence of the She has been feeling much better and the redness and swelling of the left leg has improved a lot Sectoral blister is not draining anything without any surrounding inflammation Denies any other symptoms and wants to go home 04/22/2023 The patient was seen and examined in medical floor She has been feeling much better in the cellulitis involving her left leg has improved a lot A small pimple at the lower back is not showing any abscess like situation that she needs to see a surgeon for that Denies any other symptoms Review of Systems Review of Systems: All systems reviewed and are unremarkable except as noted below Physical Exam Physical Exam: Lying in bed comfortably Constitutional: well developed, well nourished and + obese; not ill appearing Eyes: PERRL, conjunctivae normal, anicteric sclerae ENMT: external ear and nose normal, oropharynx normal Neck: trachea midline, no thyromegaly Respiratory: no respiratory distress Auscultation: + diminished lung sounds; no crackles Cardiovascular: Rate/Rhythm: regular rate and regular rhythm; not tachycardic Heart Sounds: normal S1 and normal S2; no murmur Extremities: + edema (Trace edema bilaterally) Gastrointestinal (Abdomen): Inspection/Auscultation: normal bowel sounds; abdomen not distended Percussion/Palpation: abdomen soft; abdomen nontender Musculoskeletal: No acute arthritis involving any joint Neurologic: Alert awake and oriented x3. Has left-sided paresis secondary to CVA Lymphatic: no cervical or axillary lymphadenopathy Results & Data Results & Data Vital Signs (Past 12 Hours) Vital Signs Temp Pulse Resp BP Pulse Ox O2 Del Method 04/22/23 07:06 36.6 C 59 L 16 123/80 93 Room Air Laboratory Results Short CBC 04/22/23 Range/Units 04:35 WBC 4.00 L (4.8-10.8) K/ul Hgb 14.3 (12.0-16.0) g/dl Hct 42.2 (37.0-47.0) % Plt Count 222 (130-400) K/uL BMP 04/22/23 04:35 Sodium 140 Potassium 4.4 Chloride 111 H Carbon Dioxide 23 BUN 17 Creatinine 1.12 Glucose 126 H Calcium 8.8 Medications Administered Current Inpatient Medications Acetaminophen (Acetaminophen 325 Mg Tab) 650 mg PO Q4H PRN PRN Reason: pain/fever Stop: 05/21/23 02:06 Last Admin: 04/22/23 01:14 Dose: 650 mg Amlodipine Besylate (Amlodipine Besylate 5 Mg Tab) 10 mg PO DAILY DIAZ Stop: 05/21/23 08:59 Last Admin: 04/22/23 08:13 Dose: 10 mg Aspirin (Aspirin 81 Mg Ectab) 81 mg PO DAILY DIAZ Stop: 05/21/23 08:59 Last Admin: 04/22/23 08:14 Dose: 81 mg Atorvastatin Calcium (Atorvastatin 40 Mg Tab) 40 mg PO DAILY DIAZ Stop: 05/21/23 08:59 Last Admin: 04/22/23 08:14 Dose: 40 mg Dextrose (Dextrose 50% 50 Ml Syringe) 25 - 50 ml IV UD PRN; Protocol PRN Reason: Hypoglycemia Protocol Stop: 05/21/23 02:06 Enoxaparin Sodium (Enoxaparin Inj 40 Mg/0.4 Ml Syr) 40 mg SQ Q24H DIAZ Stop: 05/21/23 07:59 Last Admin: 04/22/23 08:13 Dose: 40 mg Glucagon (Glucagon For Inj 1 Mg Vial) 1 mg SQ UD PRN; Protocol PRN Reason: Hypoglycemia Protocol Stop: 05/21/23 02:06 Glucose (Glucose 10 Tab/Tube) 4 - 8 tab PO UD PRN; Protocol PRN Reason: Hypoglycemia Treatment Stop: 05/21/23 02:06 Glucose (Glucose 40% Gel 15 Gm Tube) 15 - 30 gm PO UD PRN; Protocol PRN Reason: Hypoglycemia Protocol Stop: 05/21/23 02:06 Cefazolin Sodium (Ancef 2000mg) 2,000 mg in 15 mls @ 3.75 mls/min IV Q8H DIAZ Stop: 04/29/23 09:59 Last Admin: 04/22/23 10:24 Dose: 3.75 mls/min Insulin Aspart (Insulin Aspart Per Unit Charge) 0 units SC ACHS DIAZ Stop: 05/21/23 07:29 Last Admin: 04/22/23 12:34 Dose: Not Given Lisinopril (Lisinopril 20 Mg Tab) 20 mg PO DAILY DIAZ Stop: 05/21/23 08:59 Last Admin: 04/22/23 08:14 Dose: 20 mg Miscellaneous (Carbohydrates For Hypoglycemia ) 15 - 30 gm PO UD PRN PRN Reason: Hypoglycemia Protocol Stop: 05/21/23 02:06 Polyethylene Glycol (Polyethylene (Miralax) 17 Gm Pack) 17 gm PO DAILY PRN PRN Reason: Constipation Stop: 05/21/23 02:06
--- NOTE | 2023-04-22 16:54 | Discharge Summary ---
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 Patient will insist on of since last 1 year in the lower back but seems infected recently. Saw PCP recently on April 17 for the small cutaneous abscess in the back which was painful and was draining purulent discharge and was prescribed Bactrim. The next day she developed redness in the lower extremity. She uses brace for the left lower extremity for ambulation because of weakness of stroke and the redness is in the area where the brace is placed. As it was not getting better came to the ER today. Denies any fevers. In the ER small cutaneous abscess in the lower back was drained and cultures were sent and he was started on IV Vanco and Zosyn. Currently resting comfortably and hemodynamically stable. No headache. No earache runny nose or sore throat. No cough. Appetite is okay. No difficulty swallowing. No chest pain or shortness of breath. No nausea or vomiting. No abdominal pain. Normal bowel and bladder movements. Ambulates with a brace on. helps her. in the room who helped with H&P Past medical history as mentioned above Past surgical history colonoscopy, cystoscopy, craniotomy, removal of ovaries, repair of skull plate. Social history no smoking 1 glass of wine a night no drug use . Family history mother has asthma and hypertension. Father has diabetes. Brother has diabetes. Cousin has breast cancer.. Admission Exam Per Admitting Provider Physical Exam: General- Not in distress Head- atraumatic Eyes- PERRL ENT- oropharynx clear Neck- supple, no JVD. Lungs- clear to auscultation and percussion Heart- regular rhythm; no murmur, no gallop, no rub appreciated Abdomen- normal bowel sounds, soft, nontender, no masses or hepatosplenomegaly Extremities- Left lower extremity erythematous and warm to touch until mid akers region from foot. Neuro- alert, oriented x 3; Left sided weakness. Skin- maculopapular lesion 2 x 2 cm on middle of lower back region above buttock region. Principal Diagnosis Left leg spreading cellulitis, cutaneous boil lower back Discharge Exam Lying in bed comfortably Constitutional well developed, well nourished and + obese; not ill appearing Eyes PERRL, conjunctivae normal, anicteric sclerae ENMT external ear and nose normal, oropharynx normal Neck trachea midline, no thyromegaly Respiratory no respiratory distress Auscultation: + diminished lung sounds; no crackles Cardiovascular Rate/Rhythm: regular rate and regular rhythm; not tachycardic Heart Sounds: normal S1 and normal S2; no murmur Extremities: + edema (Trace edema bilaterally) Gastrointestinal (Abdomen) Inspection/Auscultation: normal bowel sounds; abdomen not distended Percussion/Palpation: abdomen soft; abdomen nontender Lymphatic no cervical or axillary lymphadenopathy Discharge Data Allergies Allergy/AdvReac Type Severity Reaction Status Date / Time aspirin Allergy Unknown Verified 11/05/09 02:34 Consultations 04/20/23 22:22 ED Decision to Admit Stat Ordered Studies 04/20/23 20:48 US venous doppler LE Stat Hospital Course (1) Infected blister of sacrum: 62-year-old female presents with small cutaneous abscess on the mid lower back above buttock region and also cellulitis of the left lower extremities. Failed outpatient treatment with Bactrim. Small cutaneous abscess in the lower back We will follow cultures-pinpoint growth Staphylococcus species likely skin shane No drainage and/or abscess We will continue current antibiotic for now Blood cultures negative Left lower extremity cellulitis Failed outpatient treatment with Bactrim ER started IV Vanco and Zosyn which will be continued We will continue current antibiotic Get PT and OT evaluation Likely discharge tomorrow on oral Augmentin The cellulitis has improved a lot and the patient was discharged home on oral Augmentin History of CVA Left-sided weakness Continue statin and aspirin Diabetes Hold metformin Insulin sliding scale Monitor the blood sugars Follow HbA1c levels-6.5 on 04/21/2023 Hypertension Continue amlodipine and lisinopril We will monitor the blood pressure Hyperlipidemia On statin Sleep apnea CPAP nightly DVT prophylaxis Lovenox Disposition to be determined Full code (2) Cellulitis of left leg without foot: Total Time Total Time Spent Total Time Spent (In Minutes): 35 minutes Discharge Plan Discharge Items Patient Disposition: Home - Home Health Services Reason For Visit: LEFT LEG INFECTION Discharge Diagnosis: Left leg spreading cellulitis, cutaneous boil lower back Condition on Discharge: Good Activity: Resume your previous activity Non-emergency contact: Primary Care Provider Call non-emergency contact if: you have any medication questions and your symptoms worsen Follow-up/Referrals: Stefany Ty, [Primary Care Provider] - (Your doctor's office will give you a call with an appointment within 7 days) Diet: Carb Consistent or DM2 and Heart Healthy Addtl Attending Provider Instructions: Please take precautions to avoid fall Finish your course of antibiotic as advised Please keep appointment with your healthcare provider Pending Studies at Discharge: Yes Studies:: Sensitivity on staph species Stand-Alone Forms: My [employer], Smoking Cessation Medications and DC Order Prescriptions: New amoxicillin-pot clavulanate 875-125 mg tablet 1 tab PO BID Qty: 14 0RF Continued atorvastatin 40 mg tablet 40 mg PO DAILY lisinopril 20 mg tablet 20 mg PO DAILY aspirin 81 mg Tablet,Delayed Release (Dr/Ec) 81 mg PO DAILY amlodipine 10 mg tablet 10 mg PO DAILY metformin 1,000 mg tablet 1,000 mg PO BID Discontinued sulfamethoxazole-trimethoprim 800-160 mg tablet 1 tab PO BID Rx Instructions: 10 days ordered on 04/17/23. Discharge Orders: Discharge Order (Routine); Ordered 04/22/23 Ordered By: Maddie Soriano/Other Patient Handouts: Abscess Drainage, Cellulitis Dc, Abscess Abx Tx, ED Wound Check (Infection) Admission Data Admit Date/Time: 04/20/23 23:25 Attending Provider: Maddie Gallagher Admit Provider: Real Thapa Primary Care Provider: Stefany Ty Other Providers: Real Thapa Other Interventions: Discharge Summary Assessment (RN) Last Done: 04/22/23 14:21
== END 2023-04-22 14:56 | disposition home health service (06) | DRG 603 ==
LOC: ED 20:29 → 3N 23:25